=== PATIENT | female | born 1955 | race Caucasian/White ===

== ENCOUNTER 2022-07-16 10:11 | Outpatient (RCR) | payer MEDICARE, BC, SELFPAY | END 2022-08-27 15:02 | disposition home or self-care (01) | PROVIDERS: PCP Family Medicine; Visit Provider Family Medicine | DX: M25.561 Pain in right knee (principal); Z51.89 Encounter for other specified aftercare | CPT/HCPCS: 97110; 97162 ==

== ENCOUNTER 2022-11-13 09:07 | Day surgery (SDC) | payer MEDICARE, BC, SELFPAY ==
[2022-11-13] VITALS (21 sets, daily range): BP systolic 99–120; BP diastolic 51–80; PULSE 64–75; RESP 14–18; TEMP 35.8–36.8; O2SAT 94–100; BMI 26.9
[2022-11-13] MEDS: LACTATED RINGERS 1000 ML 1,000 ML 100 ML IV ×2 (08:30→13:13)
[2022-11-13] MEDS: CELECOXIB 200 MG CAPSULE PO (10:10)
[2022-11-13] MEDS: ACETAMINOPHEN 500 MG TABLET 1000 MG PO ×2 (10:10→18:36)
[2022-11-13] MEDS: OXYCODONE (CR) 10 MG TAB.ER.12H PO (10:11)
[2022-11-13] MEDS: SODIUM CHLORIDE 0.9 % (FLUSH) 10 ML SYRINGE IVF (10:11)
[2022-11-13] MEDS: MIDAZOLAM HCL 1 MG/ML inj IVP (11:22)
[2022-11-13] MEDS: fentaNYL 100 MCG/2 ML inj IVP (11:22)
--- NOTE | 2022-11-13 11:32 | W.PM.NB ---
Nerve Block Nerve Block Time Seen by Provider: 11:32 Date Seen: 11/13/22 Type of block requested by surgeon for post-operative analgesia: supraclavicular Side: left Time out performed: Yes Verification of patient name: Yes Verification of date of : Yes Site marking: site marked Name of person performing procedure: Jordin Assistants, if any: Eddie Continuous monitoring Was continuous monitoring of O2 sat, B/P, lead manufacturing engineering tech, recorded every 15 minutes?: Yes Procedure Checklist: sterile prep, needles and gloves Ultrasound guided. Images saved: Yes Medications given in 5ml increments after negative aspiration: Ropivicaine %: 0.5 mL: 20 Needle gauge: 22 Decadron (mg): 10 Precedex (mcg): 25 Patient tolerated procedure well: Yes Block Charges Block Charge (with Pro Fee): Brachial Plexus Use of Ultrasound Machine for Block: Yes- US Guidance/pain block
--- NOTE | 2022-11-13 11:32 | SUR.PREOP ---
TIME?OUT:?1120 PT/RN/MDA?VERIFICATION?OF?SURGICAL?SITE left shoulder,?PROCEDURE nerve blcok,?AND?CONSENT OBTAINED?PRIOR?TO?INVASIVE?PROCEDURE.
[2022-11-13] MEDS: TRANEXAMIC ACID 100 MG/ML INJ 1000 MG IV (12:15)
--- NOTE | 2022-11-13 14:03 | CRLHL7_ITS ---
For Patients: As a result of the Cures Act, medical imaging exams and procedure reports are released immediately into your electronic medical record. You may view this report before your referring provider. If you have questions, please contact your health care provider. Indication: POST OP SHOULDER Technique: Two views left shoulder Findings/Impression: Hardware from a left total shoulder arthroplasty is in satisfactory position. Bone alignment is normal. No sign of acute fracture. Postop changes are within normal limits. Dictated by David Boyce MD @ 11/13/2022 3:59:43 PM (Electronically Signed)
--- NOTE | 2022-11-13 14:05 | PM.ORPRC ---
Procedure Note Date of procedure: 11/13/22 Procedure: SURGEON: Sam Ryan MD ARTIFICIAL TEETH INSPECTOR: Cierra Espino PA-C, OTILIA Jo PREOPERATIVE DIAGNOSIS: End-stage left upper extremity glenohumeral joint osteoarthritis POSTOPERATIVE DIAGNOSIS: End-stage left upper extremity glenohumeral joint osteoarthritis will NAME OF OPERATION: Left upper extremity total shoulder arthroplasty ANESTHESIA: General endotracheal ESTIMATED BLOOD LOSS: 100 mL COMPLICATIONS: None SPECIMENS: None DRAINS: None PREOPERATIVE ANTIBIOTICS: Ancef 1 g IMPLANTS: 1. Tornier 40 small pegged glenoid component 2. Tornier # 5 humeral stem 3. 44 mm x 17 mm humeral head INDICATIONS: The patient is a 67-year-old with a longstanding history of severe, unrelenting left shoulder pain secondary to end-stage glenohumeral joint osteoarthritis. Despite appropriate nonoperative management, including activity modification, anti-inflammatories, [id number] pain medication, physical therapy, and injections they continue to have pain and disability. Operative intervention was offered. The risks, benefits and expected outcomes were discussed in detail. These included but were not limited to: Infection, bleeding, injury to blood vessel or nerve, venous thromboembolism. All questions were answered to their satisfaction. Use of an assisted living assistant was necessary throughout the case for patient positioning and safety, soft tissue retraction, and closure. PROCEDURE: General anesthesia was administered. The patient was placed in the lazy beach chair position on the operating room table. The left upper extremity was prepped and draped in the usual sterile fashion. A standard deltopectoral incision was made. Subcutaneous dissection was taken with electrocautery to the deltopectoral interval. The cephalic vein was mobilized, lateral branches were cauterized. We bluntly entered the deltopectoral interval. We freed up the deltoid. The upper 1/3 of the insertion of the pectoralis was divided with cautery. The static retractor was placed. The clavipectoral fascia and CA ligament were divided. The circumflex vessels were controlled with electrocautery. The biceps was dissected out of the bicipital groove, was tagged with a #2 FiberWire suture and divided proximally. A FiberWire suture was placed in the subscapularis. The subscap was subperiosteally elevated off of the lesser tuberosity. The humeral head was delivered into the wound. The intramedullary humeral cutting guide was placed. We made the cut at the anatomic neck, in 20? of retroversion. Humeral sounds were used. Broaches were used until rotational stability was achieved. The cut protector was placed. Attention was then turned to the glenoid. Hohmann retractors were placed posteriorly. The labrum and biceps stump were sharply debrided. The origin of the inferior glenohumeral ligaments were subperiosteally released off of the glenoid. The glenoid appeared to be a 40 small. The drill guide was placed centrally. The guide pin was placed. The reamer was used to concentric bone. The central drill hole was made. The drill guide was placed and single superior and 2 inferior drill holes were made. The trial glenoid component was placed and was an excellent fit. The glenoid was irrigated with normal saline then thoroughly dried. Cement was placed in the superior and inferior drill holes. The 40 small pegged glenoid component was placed and was impacted. This was an excellent fit. Attention then returned to the humerus. The trial humeral head was placed. We reduced the shoulder and took it through a range of motion. It was found to be stable with appropriate soft tissue tension. Trial humeral components were removed. We placed 2 #2 FiberWire sutures through the lesser tuberosity for subsequent subscap repair. The biceps was tenodesed in the groove with sutures placed through drill holes, into the canal. We assembled the humeral component on the back table and impacted it into the canal. This had excellent purchase. The shoulder was reduced and was found to have appropriate soft tissue tension. We did a 3 min dilute Betadine solution soak. We irrigated the wound with 3 L of normal saline via pulse lavage. We repaired the subscapularis to the lesser tuberosity with our previously placed FiberWire sutures. The rotator interval was repaired with a #2 FiberWire suture. The deltopectoral interval was loosely reapproximated with an 0 Vicryl in an interrupted [id number] fashion. Subcutaneous tissues were closed with the 2-0 Vicryl and a running 3-0 Monocryl suture. The skin was sealed with glue. A dry dressing and sling were applied Sponge and needle counts were correct x2. The patient tolerated the procedure well, there were no apparent complications. They were awakened and extubated in the operating room, taken to the postanesthesia care unit in satisfactory condition. PLAN: The patient will be mobilized with physical therapy. The sling will be used for 6 weeks postoperatively. Active range of motion in forward flexion and abduction as tolerates. No external rotation greater than 0? for 6 weeks postoperatively. They will to be discharged to home once medically appropriate.
--- NOTE | 2022-11-13 14:28 | W.ANESCHARGE ---
Anesthesia Charges Start Date/Time Anesthesia Start Date: 11/13/22 Anesthesia Start Time: 12:05 Stop Date/Time Anesthesia Stop Date: 11/13/22 Anesthesia Stop Time: 14:57 Summary Emergency: No
--- NOTE | 2022-11-13 14:51 | W.ANESCHARGE ---
Anesthesia Charges Start Date/Time Anesthesia Start Date: 11/13/22 Anesthesia Start Time: 12:05 Stop Date/Time Anesthesia Stop Date: 11/13/22 Anesthesia Stop Time: 14:57 Summary Emergency: No
--- NOTE | 2022-11-13 15:05 | W.ANESCHARGE ---
Anesthesia Charges Start Date/Time Anesthesia Start Date: 11/13/22 Anesthesia Start Time: 12:05 Stop Date/Time Anesthesia Stop Date: 11/13/22 Anesthesia Stop Time: 14:57 Summary Emergency: No
[2022-11-13] MEDS: ONDANSETRON 2 MG/ML inj 4 MG IVP ×2 (15:07→16:06)
--- NOTE | 2022-11-13 17:10 | PM.IMCN1 ---
Date of Consult Consult date: 11/13/22 Requesting Physician: Orthopedics Primary Care Provider: Aniya Chung MD Consult Narrative Reason for consult: Management of medical problems after surgery Narrative: Polina Macario is a 67 year old female seen in consultation for management of medical problems after left total shoulder arthroplasty. Patient reports that she has been nauseated since she awoke from anesthesia. She did receive some ondansetron without good relief. She has not had any abdominal pain or vomiting. She also is concerned about urinary urgency. This is a chronic problem for her and she is having an urge to void at this time. She did not have any fever or shortness of breath. She is not having any pain in her shoulder. She has no motion or sensation in her left upper extremity from her block. Preoperatively she reports she was doing well. There were no medical issues of concern for her perioperative care. Review of Systems Narrative: She has no other active concerns at this time other than her nausea and her urinary urgency. She has not had serious nausea with previous surgeries. She has had no problems with anesthesia in the past. She has no bleeding disorder or clotting disorder. PFSH PFSH Medical History (Updated 11/13/22 @ 17:19 by Parker Chery MD) Anxiety Arthritis Calculus of gallbladder without cholecystitis without obstruction Cervicalgia Depression, major, single episode, mild Gastroesophageal reflux Heart palpitations Herniated disc, cervical Lichen sclerosus et atrophicus Low back pain Lupus Mitral valve prolapse determined by imaging Moderate episode of recurrent major depressive disorder Pain in joint of right shoulder Rosacea Urinary urgency Surgical History (Updated 11/13/22 @ 17:15 by Parker Chery MD) H/O arthroscopy of right knee History of arthroplasty of left shoulder Hx of appendectomy Family History (Updated 11/13/22 @ 17:17 by Parker Chery MD) Brother Alcohol dependence Depression Heart disease Lupus Sister Depression Father Heart disease Mother Osteoporosis Other Heart problem Social History (Updated 11/13/22 @ 17:22 by Parker Chery MD) Narrative: She is here with her friend Caroline Willson. Caroline will stay with her through the weekend and then the patient has hired a nurse to help take care of her next week. She plans to go home tomorrow for outpatient followup. Caroline is her healthcare power of transactional attorney. Her code status is full. Smoking Status: Former smoker What tobacco products do you use: cigarettes Smoking quit date/years: >15 years ago Do you use any of these nicotine containing products: None How often do you have a drink containing alcohol: never How often do you have six or more drinks on one occasion: Never AUDIT-C Alcohol total score: 0 Non-prescribed substance use: denies use Caffeine: Yes (coffee 2 cups/day) Are you using contraception or practicing any form of control: No service: No Meds Home Medications and Allergies Home Medications Medication Instructions Recorded Confirmed Type hydroxychloroquine 200 mg tablet 200 mg PO BID 08/05/22 11/13/22 History methotrexate sodium 2.5 mg tablet 15 mg PO QWEEK 08/06/22 11/13/22 History albuterol sulfate 90 mcg/actuation 2 inh inhalation Q4H PRN 10/28/22 11/13/22 History aerosol inhaler (ProAir HFA) cholecalciferol (vitamin D3) 10 40 mcg PO DAILY 10/28/22 11/13/22 History mcg/drop (400 unit/drop) oral drops clobetasol 0.05 % topical ointment 1 applic topical BID PRN 10/28/22 11/13/22 History folic acid 1 mg tablet 1 mg PO DAILY 10/28/22 11/13/22 History ketoconazole 2 % topical cream 1 applic topical BID PRN 10/28/22 11/13/22 History naltrexone 4.5 mg PO HS 10/28/22 11/13/22 History omega 6-ssd-daj-fish oil 1,600 5 ml PO DAILY 10/28/22 11/13/22 History mg-500 mg-800 mg/5 mL oral liquid propylene glycol 0.6 % eye drops 1 drp ophthalmic (eye) BID 10/28/22 11/13/22 History (Systane Complete) vitamin B complex 1 cap PO DAILY 10/28/22 11/13/22 History Allergies Allergy/AdvReac Type Severity Reaction Status Date / Time fexofenadine Allergy Intermediate Anaphylaxis Verified 11/13/22 09:54 Sulfa (Sulfonamide AdvReac Intermediate Verified 11/13/22 09:54 Antibiotics) Exam Narrative: Exam Narrative: She is alert and appears in no obvious distress. She is very soft-spoken. Speech is fluent. Eyes are normal. Oropharynx is normal. Neck is supple without mass or adenopathy. No stridor. Respirations are clear to auscultation with symmetric breath sounds. No wheezing rales rhonchi. Shoulder on the left is bandaged without significant erythema drainage on the dressing. She is got good peripheral radial pulse in her left wrist and good capillary refill in her hand. Hand is still numb and she can move her fingers. Right upper extremity has normal color motion and sensation. Cardiovascular: S1, S2, regular rate and rhythm. No murmur gallop or rub. Abdomen: Bowel sounds active. Abdomen is soft without tenderness or mass. Lower extremities without edema. She has intact pulses sensation and strength in her feet and ankles. Const: Vital Signs, click to edit/add: Vital Signs - 24 hr 11/13/22 09:59 11/13/22 11:32 11/13/22 14:47 Temperature 98.2 F 96.8 F L Pulse Rate 73 70 75 Pulse Rate [Right Pulse Oximeter] Respiratory Rate 16 16 18 Blood Pressure 120/63 117/52 L 117/67 Blood Pressure [Ri ght Arm] Pulse Oximetry 99 100 97 Oxygen Delivery Me thod Room Air Nasal Cannula Room Air Oxygen Flow Rate 2 11/13/22 14:50 11/13/22 15:00 11/13/22 15:05 Temperature Pulse Rate 72 71 71 Pulse Rate [Right Pulse Oximeter] Respiratory Rate 16 16 16 Blood Pressure 111/70 108/65 109/64 Blood Pressure [Ri ght Arm] Pulse Oximetry 96 96 95 Oxygen Delivery Me thod Room Air Room Air Room Air Oxygen Flow Rate 11/13/22 14:55 11/13/22 15:10 11/13/22 15:18 Temperature 96.7 F L Pulse Rate 72 68 72 Pulse Rate [Right Pulse Oximeter] Respiratory Rate 16 14 16 Blood Pressure 115/68 101/57 L 108/80 Blood Pressure [Ri ght Arm] Pulse Oximetry 95 98 99 Oxygen Delivery Me thod Room Air Room Air Room Air Oxygen Flow Rate 11/13/22 15:26 11/13/22 15:30 11/13/22 15:45 Temperature 96.5 F L 96.4 F L 96.9 F L Pulse Rate 68 Pulse Rate [Right Pulse Oximeter] 70 67 Respiratory Rate 16 16 16 Blood Pressure Blood Pressure [Ri ght Arm] 105/60 113/55 L 102/60 Pulse Oximetry 95 94 Oxygen Delivery Me thod Room Air Room Air Room Air Oxygen Flow Rate 11/13/22 16:00 11/13/22 16:15 11/13/22 16:51 Temperature 97 F L 96.6 F L 96.8 F L Pulse Rate Pulse Rate [Right Pulse Oximeter] 66 65 66 Respiratory Rate 16 16 16 Blood Pressure Blood Pressure [Ri ght Arm] 103/58 L 101/60 101/56 L Pulse Oximetry 96 96 96 Oxygen Delivery Me thod Room Air Room Air Room Air Oxygen Flow Rate 2 Documenting provider has reviewed patient's vital signs: yes Assessment and Plan Assessment and plan (1) History of arthroplasty of left shoulder: Status: Acute (2) Urinary urgency: Status: Acute (3) Postoperative nausea: Status: Acute Plan Patient is doing well postoperatively except for her nausea. At this point will manage the nausea with ondansetron or Compazine if necessary. Anticipate this will improve overnight and she can begin to eat a more normal diet tomorrow. No other perioperative complications are identified. I reviewed her medications with her and most of her medications can be held. She does take methotrexate on Fridays and that can be taken at home tomorrow. Total time was 40 minutes in coordination of care and discussing with patient and other providers management of postoperative nausea and shoulder rehab.
[2022-11-13] MEDS: LACTATED RINGERS 1000 ML 500 ML IV (17:14)
--- NOTE | 2022-11-13 18:30 | PC.NURSE ---
End of Shift: Patient pleasant and cooperative. Patient with soft BP's but vitally stable, lungs clear, BS WNL, IV running LR at 75. Patient with nausea and given Zofran once. Patient reports no pain. Radha SBA to toilet, has used the toilet x2 with minimal urine, 50cc and 25cc. Patient has ate some cracker and some soup. Left shoulder wound C/D/I.
--- NOTE | 2022-11-13 19:30 | PC.NURSE ---
End of Shift: Patient arrived to floor at 1855. Patient transfer slide into bed. Patient hypertensive, but vitally stable. Patient alert and oriented. All admission complete besides physical assessment. Patient changed into gown, paperwork complete. Report given to next RN.
[2022-11-13] MEDS: CLINDAMYCIN 900 MG/50 ML-D5W IVPB (19:43)
[2022-11-13] MEDS: HYDROXYCHLOROQUINE 200 MG TABLET PO (21:06)
[2022-11-13] MEDS: SENNOSIDES 1 TAB TABLET 2 TAB PO (21:06)
[2022-11-13] MEDS: 0.9 % SODIUM CHLORIDE 500 ML IV (21:17)
[2022-11-14] MEDS: ACETAMINOPHEN 500 MG TABLET 1000 MG PO ×2 (00:33→06:26)
[2022-11-14] MEDS: 0.9 % SODIUM CHLORIDE 500 ML IV (01:59)
[2022-11-14 03:00] VITALS: BP 107/54; PULSE 66; PULSE 69; RESP 16; TEMP 36.2; O2SAT 94
[2022-11-14] MEDS: CLINDAMYCIN 900 MG/50 ML-D5W IVPB ×2 (03:41→10:20)
--- NOTE | 2022-11-14 04:10 | PC.NURSE ---
Addendum entered by Norm Pizarro RN 11/14/22 04:14: Dressing appeared clean and dry. SCD applied. Original Note: Pt urine output is low. N/S 500ml bolus given. R/L 75/hr has been running before and after the N/S. Pt has frequency and urgency of urine but only get small amount of urine, mostly about 50ml. Bladder scan done and was 35ml. Charge nurse informed and agreed to give additional 500ml of N/S bolus. This was completed at 0355 but urgency and frequency continuous. Left arm numbness and weakness are noted on assessment. Pulse rate in the left arm is good and capillary refill <3 sec. Denied pain at this time, no N/V.
[2022-11-14] MEDS: LACTATED RINGERS 1000 ML 1,000 ML 75 ML IV (05:11)
[2022-11-14 06:40] LABS: Hemoglobin* 10.5 gm/dL (12.0-16.0); Mean Corpuscular HGB Conc 33 gm/dL (32-36); Mean Corpuscular Hemoglobin 32 pg (26-34); Mean Corpuscular Volume 98 fL (80-100); Platelet Count* 172 K/uL (140-440); Red Blood Count 3.28 m/uL (4.00-5.20); White Blood Count* 9.63 K/uL (4.50-11.00)
[2022-11-14 06:48] LABS: Slide Review Reflex No
[2022-11-14 06:58] LABS: Sodium* 137 mmol/L (135-149)
[2022-11-14 07:01] LABS: Blood Urea Nitrogen* 17 mg/dL (7-30); Creatinine* 0.8 mg/dL (0.5-1.5); Est. Creatinine Clearance* 52.36; Estimated Glomerular Filt Rate 80 ml/min
[2022-11-14 07:41] VITALS: BP 101/54; PULSE 68; RESP 16; TEMP 36.6; O2SAT 96
--- NOTE | 2022-11-14 08:52 | PM.ORPN ---
Subjective Subjective Time Seen by Provider: 08:10 Date Seen: 11/14/22 Principal diagnosis: Day 1 s/p left total shoulder arthroplasty Interval history: Polina is doing well this morning and is resting comfortably in bed. C/o minimal left shoulder pain that is well managed with acetaminophen and frequent icing. Denies: fever, chills, body aches, chest pain, SOB. Since her surgery, Polina has had low urine output which improved after receiving a fluid bolus. She explains she has lupus and a history of urinary urgency and frequent urination. Patient denies sensation and motor function in her left hand, which I explained is normal after a nerve block. She does admit to left elbow pain, which is indicative of the block wearing off. No acute concerns. Ortho Exam Narrative Exam Narrative: Incision/Dressing: Dressing appears clean and dry. No drainage present. Mepilex intact. Left shoulder appears moderately swollen but supple with no obvious erythema, fluctuance or excessive warmth. Eccymosis present in axilla and medial to dressing. CMS: Intact distally with 2+ Radial pulse. Sensation confirmed over deltoid. Constitutional: Patient is alert and oriented x3. Patient is in no acute distress and converses without labored breathing. Patient is able to make decisions and demonstrates good insight. Patient is pleasant and cooperative. Affect is full range and appropriate for the circumstances. Other: Patient is utilizing her sling during this visit. Const Vital Signs, click to edit/add: Vital Signs - 24 hr 11/13/22 09:59 11/13/22 11:32 11/13/22 14:47 Temperature 98.2 F 96.8 F L Pulse Rate 73 70 75 Pulse Rate [Left Radial] Pulse Rate [Right Pulse Oximeter] Respiratory Rate 16 16 18 Blood Pressure 120/63 117/52 L 117/67 Blood Pressure [Right Arm] Pulse Oximetry 99 100 97 Oxygen Delivery Method Room Air Nasal Cannula Room Air Oxygen Flow Rate 2 11/13/22 14:50 11/13/22 15:00 11/13/22 15:05 Temperature Pulse Rate 72 71 71 Pulse Rate [Left Radial] Pulse Rate [Right Pulse Oximeter] Respiratory Rate 16 16 16 Blood Pressure 111/70 108/65 109/64 Blood Pressure [Right Arm] Pulse Oximetry 96 96 95 Oxygen Delivery Method Room Air Room Air Room Air Oxygen Flow Rate 11/13/22 14:55 11/13/22 15:10 11/13/22 15:18 Temperature 96.7 F L Pulse Rate 72 68 72 Pulse Rate [Left Radial] Pulse Rate [Right Pulse Oximeter] Respiratory Rate 16 14 16 Blood Pressure 115/68 101/57 L 108/80 Blood Pressure [Right Arm] Pulse Oximetry 95 98 99 Oxygen Delivery Method Room Air Room Air Room Air Oxygen Flow Rate 11/13/22 15:26 11/13/22 15:30 11/13/22 15:45 Temperature 96.5 F L 96.4 F L 96.9 F L Pulse Rate 68 Pulse Rate [Left Radial] Pulse Rate [Right Pulse Oximeter] 70 67 Respiratory Rate 16 16 16 Blood Pressure Blood Pressure [Right Arm] 105/60 113/55 L 102/60 Pulse Oximetry 95 94 Oxygen Delivery Method Room Air Room Air Room Air Oxygen Flow Rate 11/13/22 16:00 11/13/22 16:15 11/13/22 16:51 Temperature 97 F L 96.6 F L 96.8 F L Pulse Rate Pulse Rate [Left Radial] Pulse Rate [Right Pulse Oximeter] 66 65 66 Respiratory Rate 16 16 16 Blood Pressure Blood Pressure [Right Arm] 103/58 L 101/60 101/56 L Pulse Oximetry 96 96 96 Oxygen Delivery Method Room Air Room Air Room Air Oxygen Flow Rate 2 11/13/22 17:15 11/13/22 18:15 11/13/22 19:00 Temperature 97.8 F 97.7 F 97.1 F L Pulse Rate Pulse Rate [Left Radial] Pulse Rate [Right Pulse Oximeter] 67 69 64 Respiratory Rate 16 16 16 Blood Pressure Blood Pressure [Right Arm] 99/52 L 105/51 L 107/51 L Pulse Oximetry 98 97 97 Oxygen Delivery Method Room Air Room Air Room Air Oxygen Flow Rate 11/13/22 21:15 11/13/22 20:00 11/13/22 23:00 Temperature 97.4 F L 97.4 F L 97.8 F Pulse Rate Pulse Rate [Left Radial] Pulse Rate [Right Pulse Oximeter] 66 67 71 Respiratory Rate 16 16 16 Blood Pressure Blood Pressure [Right Arm] 110/62 110/57 L 102/54 L Pulse Oximetry 98 98 94 Oxygen Delivery Method Room Air Room Air Room Air Oxygen Flow Rate 11/14/22 03:00 11/14/22 07:41 Temperature 97.2 F L 98 F Pulse Rate Pulse Rate [Left Radial] 69 68 Pulse Rate [Right Pulse Oximeter] 66 Respiratory Rate 16 16 Blood Pressure Blood Pressure [Right Arm] 107/54 L 101/54 L Pulse Oximetry 94 96 Oxygen Delivery Method Room Air Room Air Oxygen Flow Rate Documenting provider has reviewed patient's vital signs: yes Assessment and Plan Assessment and plan (1) History of arthroplasty of left shoulder: Problem details: Day 1 s/p left total shoulder arthroplasty Status: Acute Assessment and Plan: Sling use x 6 weeks postoperative. May remove to work on elbow/hand/wrist ROM. No external rotation of the right shoulder past 0? x 6 weeks. Forward flexion and abduction of the right shoulder is allowed as tolerated. For pain management, Oxycodone and acetaminophen PRN in addition to frequent icing. Minimize use of narcotics. Dressing is waterproof. May shower. Surgical glue covers the wound. Patient will follow-up with myself at 1 week postoperative. Follow-up with Dr. Ryan at 6 weeks postoperative. Phone Orthopedics with any questions or concerns. [phone] (2) Urinary urgency: Status: Acute (3) Postoperative nausea: Status: Acute
[2022-11-14] MEDS: SENNOSIDES 1 TAB TABLET 2 TAB PO (08:59)
[2022-11-14] MEDS: HYDROXYCHLOROQUINE 200 MG TABLET PO (08:59)
--- NOTE | 2022-11-14 10:24 | PC.SOCIAL ---
Addendum entered by KRISTINE Gonzalez 11/14/22 20:38: Product Engineer has reviewed and agrees with this note. Original Note: Discharge plan: Social work checked in with pt. about safe discharge plan. Pt. states that a friend is staying with her to help, and that a [place] nursing assistants teacher will also be coming by day-to-day to help out at home. Pt. lives in a senior building with an elevator, and is surrounded by others if she needs additional help. Pt. says that home is completely accessible to her. Pt. has no concerns at this time. Pt. is aware that she can reach out to hospital with any future concerns. Social work to follow up as needed.
[2022-11-14 12:05] VITALS: BP 108/80; PULSE 68; RESP 16; TEMP 36.6
--- NOTE | 2022-11-14 12:12 | PC.NURSE ---
Discharge: Patient vitals stable and WNL, denies pain, some tingling sensation in finger tips and able to move fingers. Dressing dry and intact. Denies SOB or nausea, tolerating regular diet well. Independent, frequently ambulating per self. IV in right wrist removed with catheter tip intact. Discharge instructions, follow up and medications reviewed, questions answered as needed. Patient ambulated to friends car per self with staff along to carry personal belongings to front entrance. Friend to bring home. Discharged @ 1148.
== END 2022-11-14 11:48 | disposition home or self-care (01) ==
LOC: OR 09:17 → MEDSURG 09:19
PROVIDERS: PCP Family Medicine; Visit Provider Orthopaedic Surgery
PROC: 0RRJ0JZ Replacement of Right Shoulder Joint with Synthetic Substitute, Open Approach (ICD-10-PCS; CPT 23472; principal; 2022-11-13 11:15)
DX: M19.012 Primary osteoarthritis, left shoulder (principal); R39.15 Urgency of urination; R11.0 Nausea; F41.9 Anxiety disorder, unspecified; K21.9 Gastro-esophageal reflux disease without esophagitis; F33.1 Major depressive disorder, recurrent, moderate; I34.1 Nonrheumatic mitral (valve) prolapse; M32.9 Systemic lupus erythematosus, unspecified; M50.20 Other cervical disc displacement, unspecified cervical region
CPT/HCPCS: 23472; 01638; 36415; 64415; 73030; 76942; 82565; 84132; 84295; 84520; 85027; 97161; 97165; A9270; C1776; C9290; J0330; J1100; J1170; J2250; J2405; J2704; J2710; J2795; J3010; J3490; J7120; S0077

== ENCOUNTER 2023-01-15 11:15 | Outpatient (RCR) | payer MEDICARE, BC, SELFPAY ==
--- NOTE | 2022-11-05 13:59 | OT.OPGNE ---
OT Outpatient General/Neuro Eval OT Outpatient General/Neuro Eval Start: 11/05/22 13:39 Freq: Status: Active Protocol: Document 11/05/22 13:43 [facility] (Rec: 11/05/22 13:55 SMW [id number]) E-signed By Doris Puente OT OT Outpatient Evaluation Details Type Type Eval Complexity Low Insurance Information Insurance Information Insurance Information Medicare B Outpatient History/Precautions Medical/Functional History Medical History Reviewed Yes Prior Level of Function/Mobility Patient lives alone in her own apartment. I in all ADLs, IADLs and mobility. Current Condition Treatment Diagnosis LTSA Social History Type of Dwelling Apartment Number of Stairs to Enter (Stairs) 0 Lives With: Alone Physical Barriers in Home Environment Elevator Employment Status Retired Hobbies gardening Oriented Patient Orientation Person,Place,Time,Situation Patient Subjective Subjective Patient Subjective My left shoulder hurts so much . I am looking forward to getting it replaced. Assessment Assessment Assessment The patient is a 67-year-old female referred to outpatient OT for a left total shoulder pre-op. Surgery scheduled for 11/13/22. The patient lives alone in her own apartment. She is independent in all ADLs , IADLs and mobility. She was educated on therapy progression while hospitalized , post op exercises, sling management, positioning, ADLS. She asked excellent questions . She will have exhauster assistance for 3-4 days and strategic partnership representative assistance for 3-4 days. Occupational Therapy Treatment Plan - OP Goals Goals During pre op visit, patient will... 1. be educated on post op therapy progression, exercises , sling management, positioning and ADLs. goal met Progress set Treatment Plan Treatment Plan Evaluation Certification Certification I Certify That: Therapy Services Provided, Therapy Plan Established, Therapy Plan Reviewed
--- NOTE | 2022-11-27 13:21 | PT.OPEX ---
PT [place] Outpatient Eval PT [facility] Outpatient Eval Start: 11/27/22 11:06 Freq: Status: Active Protocol: Document 11/27/22 11:11 BRIANA (Rec: 11/27/22 13:15 BRIANA [id number]) E-signed By Laz Terrell PT Physical Therapy Outpatient Evaluation Insurance Information Insurance Name Medicare B Medical Diagnosis Left shoulder OA S/P left shoulder TSA Treating Diagnosis Left shoulder pain Limited left shoulder ROM and strength Referring MD Ryan Subjective Subjective Pt. reports having left shoulder TSA surgery on due to longstanding OA pain and dysfunction. She has been wearing the immobilizer except for when exercising. She has noticed a lot of left scapular/thoracic and shoulder muscle TP type pain symptoms that she has been trying to self treat with accupressure etc. PMH includes; Lupus, depression, OA and allergies. She is having a lot of difficulty sleeping and lying down due to pain. Pain Comments 06/08 Date of Surgery (If applicable) 11/13/22 Current Work Status Retired Preferred Name Polina Objective Range of Motion left shoulder: flexion 100; ER to neutral; abduction to 60 Assessment Assessment/Impression Objectively, pt. demonstrates; 100 degrees of passive flexion with neutral ER and 60 deg of abduction; hypertonus of left deltoid, upper trap, and scapular areas; thoracic scoliotic curvature; scapular stabilizer weakness; and normal elbow, wrist and hand AROM. She would benefit from skilled therapy working on progressive left shoulder ROM and strengthening program. Primary Functional Limitations Reaching, lifting, dressing, gardening Plan of Care Rehabilitation Potential Excellent Physical Therapy Goals 1. Pt. will be indep. with HEP for self maintenance in 10 weeks. 2. Pt. will demonstrate improved shoulder ROM to functional level in 10 weeks. 3. Pt. will be able to raise arm overhead for ADL's without difficulty in 10 weeks. Coordination/Communication With Referral Source Treatment Plan/Direct Interventions Joint Mobilization,Manual Therapy,Neuromuscular Re-ed, Self-Care/Home Management, Therapeutic Activities, Therapeutic Exercises Frequency/Duration 1-2 times a week for 10-12 weeks. Patient Will Be Discharged From Therapy Independent w/HEP, Independently Progressing Evaluation Billing Complexity Moderate Certification Information Initial Certification Date 11/27/22 Ending Certification Date 02/19/23 Provider Signature Shows Agreement With POC & Medical Necessity Physician Signature & Date Requested Please Sign/Date Here Physician Comment/Change : Physician NPI Number #
== END 2023-03-17 10:34 | disposition home or self-care (01) ==
PROVIDERS: PCP Family Medicine; Visit Provider Orthopaedic Surgery
DX: M19.012 Primary osteoarthritis, left shoulder (principal); Z96.612 Presence of left artificial shoulder joint; M25.512 Pain in left shoulder; Z51.89 Encounter for other specified aftercare
CPT/HCPCS: 97110; 97140; 97162; 97165; 97535

== ENCOUNTER 2023-08-06 06:19 | Day surgery (SDC) | payer MEDICARE, BC, SELFPAY ==
[2023-08-06] VITALS (9 sets, daily range): BP systolic 130–156; BP diastolic 54–78; PULSE 71–83; RESP 16–18; TEMP 36.6–36.7; O2SAT 96–99; BMI 26.3
--- OUTSIDE RECORDS SUMMARY | 2023-08-06 06:22 | XMS_ITS | Continuity of Care Document ---
Author Name Unknown Organization [facility] Address [address] [address] [place] [address] Phone Care Team Providers Care Condenser Setter Name Role Phone Denny Soria MD Unavailable Unavailable Allergies, Adverse Reactions, Alerts Substance Reaction Status Criticality cefaclor Active No Information FEXOFENADINE HCL Active No Informat ion Medications Medication Instructions Dosage Effective Dates (start - stop) Status Comments Tylenol 325 mg tablet take 1 tablet by oral route every 4 hours as needed 325 MG - Active trospium 20 mg tablet take 1 tablet by oral route 2 times every day on an empty stomach 20 MG - Active Flonase Allergy Relief 50 mcg/actuation nasal spray,suspension spray 1 - 2 spray by intranasal route every day in each nostril as needed 50-100 MCG - Active Vitamin D3 25 mcg (1,000 unit) capsule take 1 Tablet by Oral route every day 1 Tablet - Active zinc gluconate 30 mg tablet - Active Procedures Procedure Date New Level 4 or 45-59 min cancelled appt Offic/outpt E&m Estab Mod-hi 2 08 Routine Serum Collection [id number] Colonoscopy Flex; W/bx 1/mx Ugi Endo; W/bx 1/mx Level Iv-surg Path Gross/micro 08 Offic Cons New/estab Mod-hi 60 08 Advance Directives Directive Yes / No Effective Date File Name No Information Encounters Encounter Description Practice Location Reason(s) For Visit Diagnoses Date Provider Providers Copied on Encounter [facility], [address] [address], [place], [id number], [place] tel:[phone] [facility] No Information 0 Estella Baldwin. [address] [place] [address], [id number], [place]. tel:[phone] [place] [facility] tel:[phone] New Level 4 or 45-59 min [facility], [address] [address], [place], [id number], [place] tel:[phone] [facility] GI Symptoms or Concerns (chief complaint) Pelvic floor dysfunction in female Aug- 0 Estella Baldwin. [address] [place] [address], [id number], [place]. tel:[phone] [facility] [place] [facility] tel:[phone] erring Provider: Aniya Chung MD, [address] [place] [address], [address]. tel:[phone] [facility], [address] [address], [place], [id number], [place] tel:[phone] [facility] No Information 0 Teri Cueva. [address] [place] [address], [id number], [place]. tel:[phone] [place] [address] [facility] tel:[phone] erring Provider: Referral Self. [facility], [address] [address], [place], [id number], [place] tel:[phone] [facility] No Information Sep-2 0 Teri Cueva. [address], [id number], [place]. tel:[phone] Offic/outpt E&m Estab Mod-hi 2 [facility], [address] [address], [place], [id number], [place] tel:[phone] [facility] Flat[place]/eructat /gas PainDiarrheaAb dominal Pain, Unspecified 8 No Information [facility], [address] [address], [place], [id number], [place] tel:[phone] [place] DiarrheaColon Cancer ScreeningAbdom inal Pain, Unspecified 8 No Information Offic Cons New/estab Mod-hi 60 [facility], [address] [address], [place], [id number], [place] tel:[phone] [facility] Abdominal Pain, UnspecifiedGas troesophageal Reflux 8 Estella RODRIGUEZ Denny. [address] [facility], [place], [place], [id number], [place]. tel:[phone] Family History Family Member Type Diagnosis Age At Onset Father Problem (finding) GERD First degree family history Problem (finding) No history of Cancer, colon First degree family history Problem (finding) No history of Ulcerative Colitis First degree family history Problem (finding) No history of Crohn's First degree family history Problem (finding) No Family history of No history of Colon Polyps First degree family history Problem (finding) diverticulitis of colon First degree family history Problem (finding) alcoholism Immunizations Vaccine Date Status Comments influenza, high dose seasona l, preservative-free administered Note: [facility] bi-direct ional interface ; Source: Other Registry Fluzone Quad 6mo or older administered Note: [facility] bi-direct ional interface ; Source: Other Registry Fluzone Quad 6mo or older administered Note: [facility] bi-direct ional interface ; Source: Other Registry Fluzone Quad 6mo or older administered Note: [facility] bi-direct ional interface ; Source: Other Registry tetanus toxoid, reduced diphtheria toxoid, and acellular pertussis vaccine, adsorbed administered Note: [facility] b i-directional interface ; Source: Other Registry Fluzone Quad 6mo or older administered Note: [facility] bi-direct ional interface ; Source: Other Registry Influenza, seasonal, injectable administe red Note: [facility] bi- directional interface ; Source: Other Registry Influenza, seasonal, injectable administe red Note: [facility] bi- directional interface ; Source: Other Registry Influenza, seasonal, injectable administe red Note: [facility] bi- directional interface ; Source: Other Registry Influenza, seasonal, injectable administe red Note: [facility] bi- directional interface ; Source: Other Registry Novel [id number], all formulations administered Note: [facility] bi-direct ional interface ; Source: Other Registry Prevnar administered Note: [facility] bi-d irectional interface ; Source: Other Registry Pneumovax administered Note: [facility] bi-d irectional interface ; Source: Other Registry Influenza, seasonal, injectable administe red Note: [facility] bi- directional interface ; Source: Other Registry Prevnar administered Note: [facility] bi-d irectional interface ; Source: Other Registry Pneumovax 23 administered Note: [facility] bi-d irectional interface ; Source: Other Registry Influenza, seasonal, injectable administe red Note: [facility] bi- directional interface ; Source: Other Registry Influenza, seasonal, injectable administe red Note: [facility] bi- directional interface ; Source: Other Registry tetanus and diphtheria toxoi ds, adsorbed, preservative free, for adult use (2 Lf of tetanus toxoid and 2 Lf of diphtheria toxoid) administered Note: [facility] bi-direct ional interface ; Source: Other Registry Payers Payer name Insurance type Covered republican ID Authoriza tion(s) Medicare NGS MB [id number] [place] [employer] Medicare Supplement BL [id number] Social History Type Description Quantity Date Captured Comments Alcohol Use Details Unknown Caffeine Use Details Unknown Tobacco Use Status No Information Smoking Status No Information Sex Female Chief Complaint And Reason For Visit No Information Reason For Referral Reason For Referral No Information Plan Of Treatment Date Type Action Status Referral Ordered: [facility] to [facility] Consult, work-up, management/treatment within 2 Months Appointment date/timeframe: 09/26/2020 ordered History Of Present Illness Encounter Date Complaint History Of Blas nt Illness GI Symptoms or Concerns Polina is a pleasant 65-year-old female who presents for a virtual visit today for a variety of symptoms, possibly pelvic floor dysfunction. The patient reports for 2 years, she has had issue in the pelvic area, initially some uncomfortableness or discomfort, ultimately after seeing her spa experience coordinator and then referral to a urologic spa experience coordinator, she was diagnosed with bladder spasms and a cystitis. She did not tolerate the amitriptyline, which was used as a treatment. She did stop Estrace. Ultimately, she was started on a medication called trospium with some improvement.Her concerning symptoms at this time are incomplete evacuation, significant straining, burning in the perianal area and she can feel a bulge through her vaginal wall when she strains. She does not feel a protrusion of tissue through the anal canal.She has 1 to 3 formed to soft stools per day. Usually, they start out formed and then become more soft. There is no diarrhea. No blood in the stool.She has Functional Status Date Functional Assessmen t No Information Instructions Date Instruction Additional Infor henry - [facility]- Patient will call if a colonoscopy is not done by the colorectal surgeons at the [facility] and if she would like to pursue a colonoscopy for colon cancer screening.- Follow-up in our clinic, as needed, if chronic diarrhea for treatment of possible lymphocytic colitis Related to Pelvic floor dysfunction in female Assessments Type Assessment Date No Information Patient Care Teams Name Effective Dates (start - stop) Status Members No Information
--- OUTSIDE RECORDS SUMMARY | 2023-08-06 06:22 | XMS_ITS | Continuity of Care Document ---
Author Name Unknown Organization [facility] Address [address] [address] [place] [address] Phone Care Team Providers Care Java Lead Architect Name Role Phone Denny Soria MD Unavailable [...] Diagnoses Date Provider Providers Copied on Encounter [facility], [address] [address], [place], [id number], [place] tel:[phone] [facility] No Information 0 Estella Baldwin. [address] [place] [address], [id number], [place]. tel:[phone] [place] [facility] tel:[phone] New Level 4 or 45-59 min [facility], [address] [address], [place], [id number], [place] tel:[phone] [facility] GI Symptoms or Concerns (chief complaint) Pelvic floor dysfunction in female Aug- 0 Estella Baldwin. [address] [place] [address], [id number], [place]. tel:[phone] [facility] [place] [facility] tel:[phone] erring Provider: Aniya Chung MD, [address] [place] [address], [address]. tel:[phone] [facility], [address] [address], [place], [id number], [place] tel:[phone] [facility] No Information 0 Teri Cueva. [address] [place] [address], [id number], [place]. tel:[phone] [place] [address] [facility]. tel:[phone] erring Provider: Referral Self. [facility], [address] [address], [place], [id number], [place] tel:[phone] [facility] No Information Sep-2 0 Teri Cueva. [address], [id number], [place]. tel:[phone] Offic/outpt E&m Estab Mod-hi 2 [facility], [address] [address], [place], [id number], [place] tel:[phone] [facility] Flatul/eructat /gas PainDiarrheaAb dominal Pain, Unspecified 8 No Information [facility], [address] [address], [place], [id number], [place] tel:[phone] [place] DiarrheaColon Cancer ScreeningAbdom inal Pain, Unspecified 8 No Information Offic Cons New/estab Mod-hi 60 [facility], [address] [address], [place], [id number], [place] tel:[phone] [facility] Abdominal Pain, UnspecifiedGas troesophageal Reflux 8 Estella RODRIGUEZ Denny. [address] [facility] [address], [place], [place], [id number], [place]. tel:[phone] Family History Family Member Type Diagnosis Age [...] directional interface ; Source: Other Registry Novel [id number], all formulations administered Note: [facility] bi-direct ional [...] Registry Payers Payer name Insurance type Covered democrat ID Authoriza tion(s) Medicare NGS MB [id number] [place] [employer] Medicare Supplement BL [id number] Social History Type Description Quantity Date Captured [...] uncomfortableness or discomfort, ultimately after seeing her engineering specialist technician and then referral to a urologic engineering specialist technician, she was diagnosed with bladder spasms and [...]
[2023-08-06] MEDS: LACTATED RINGERS 1000 ML 1,000 ML 35 ML IV (06:30)
[2023-08-06] MEDS: CEFAZOLIN 2 GM INJ IVP (06:30)
[2023-08-06] MEDS: SODIUM CHLORIDE 0.9 % (FLUSH) 10 ML SYRINGE IVF (07:06)
[2023-08-06] MEDS: lidocaine HCL 2 % MULTIDOSE 20 ML VIAL INJECTION (07:28)
[2023-08-06] MEDS: BUPIVACAINE 0.5% 30 ML INJECTION (07:28)
--- NOTE | 2023-08-06 07:46 | P.ORPRC_ITS ---
Procedure Note Date of procedure: 08/06/23 Procedure: Preop diagnosis: Left upper extremity carpal tunnel syndrome Postop diagnosis: Left upper extremity carpal tunnel syndrome Procedure: Left upper extremity carpal tunnel release Anesthesia: Local Surgeon: Sam Ryan MD seed laboratory assistant: CRISTINA Brooks EBL: 5 mL Complications: None Specimens: None Drains: None Indications: The patient has a history of left upper extremity carpal tunnel syndrome symptoms. Despite appropriate nonoperative management consisting of nighttime bracing and occupational therapy they continue to have symptoms. Operative intervention was recommended. The risks, benefits alternatives and expected outcomes were discussed in detail. These included but were not limited to: Infection, bleeding, injury to blood vessel or nerve, venous thromboembolism. All questions were answered to their satisfaction. The patient was placed supine on the operating room table. Local anesthesia was established with 0.5% Marcaine without epinephrine and 2% lidocaine without epinephrine. The hand was prepped and draped in usual sterile fashion. The limb was elevated the forearm pneumatic tourniquet was inflated to 250 mm of mercury. A longitudinal incision was made centered over the radial border of the ring finger at the base of the palm. Subcutaneous dissection was sharply taken through the palmar fascia and the palmaris brevis to the transverse carpal ligament. The ligament was divided in line with the incision. Proximal and distal dissection was carried with tenotomy and Metzenbaum scissors for a wide decompression of the carpal tunnel. The tourniquet was released, bleeding was controlled with direct pressure. The wound was closed with a 3-0 nylon. A bulky dry dressing was applied, sponge and needle counts were correct x 2. The patient tolerated the procedure well, there were no apparent complications. They were sent to same day surgery in satisfactory condition. Plan: Use of the hand as tolerates. Discontinue the intraoperative dressing on postoperative day 3 and may get the wound wet as tolerates. Follow up in the office in 3 weeks for a wound check and suture removal.
== END 2023-08-06 08:14 | disposition home or self-care (01) ==
PROVIDERS: PCP Family Medicine; Visit Provider Orthopaedic Surgery
PROC: (CPT 64721; principal; 2023-08-06 07:15)
DX: G56.02 Carpal tunnel syndrome, left upper limb (principal)
CPT/HCPCS: 64721; J0665; J0690; J7120

== ENCOUNTER 2023-10-28 10:30 | Outpatient (RCR) | payer MEDICARE, BC, SELFPAY | END 2024-01-13 12:22 | disposition home or self-care (01) | PROVIDERS: PCP Family Medicine; Visit Provider Family Medicine | DX: M25.561 Pain in right knee (principal); G89.29 Other chronic pain; M17.11 Unilateral primary osteoarthritis, right knee; M70.61 Trochanteric bursitis, right hip; M70.62 Trochanteric bursitis, left hip; M62.81 Muscle weakness (generalized); R26.2 Difficulty in walking, not elsewhere classified; Z51.89 Encounter for other specified aftercare | CPT/HCPCS: 97110; 97140; 97162 ==

== ENCOUNTER 2025-05-26 13:00 | Outpatient (RCR) | payer MEDICARE, BC, SELFPAY | END 2025-09-23 23:59 | disposition home or self-care (01) | PROVIDERS: PCP Family Medicine; Visit Provider Family Medicine | DX: M25.562 Pain in left knee (principal); M25.552 Pain in left hip; Z51.89 Encounter for other specified aftercare | CPT/HCPCS: 97110; 97162 ==